=== PATIENT | female | born 1970 | race Caucasian/White ===

== ENCOUNTER 2017-08-25 17:42 | Inpatient (IN) | payer OTHER ==
[~2017-08-25] VITALS: Ht 167.6 cm; Wt 158.8 kg
[~2017-08-25 17:42] MED LIST: ADVIL200 MG PO; ELIQUIS5 MG PO; LEVAQUIN750 MG PO; NORVASC5 MG PO; PROAIR HFA8.5 GM IH
[2017-08-25 21:17] LABS: BASOPHIL (%) 0.2 % (0-1); EOSINOPHIL (%) 0.6 % (0-5); EOSINOPHIL COUNT 0.1 K/uL (0-0.3); HEMATOCRIT 37.9 % (36.0-46.0); HEMOGLOBIN 11.9 G/DL (11.9-15.5); IMMATURE GRANULOCYTE (%) 0.4 % (0.0-0.7); LYMPHOCYTE (%) 13.2 % (15-42); LYMPHOCYTE COUNT 1.1 K/uL (1.0-2.8); MCH 24.2 PG (29.0-34.0); MCHC 31.4 G/DL (30.0-36.0); MCV 77.2 FL (83-99); MONOCYTE (%) 12.7 % (3-12); NEUTROPHIL (%) 72.9 % (45-76); NEUTROPHIL COUNT 5.9 K/uL (1.8-6.4); PLATELET COUNT 188 K/uL (156-360); RBC DIS.WIDTH-CV 14.7 % (11.8-14.6); RBC DIS.WIDTH-SD 40.4 % (39-53); RED BLOOD COUNT 4.91 M/uL (3.80-5.20); WHITE BLOOD COUNT 8.1 K/uL (4.1-10.2)
[2017-08-25 21:31] LABS: CHLORIDE 100 mEq/L (99-109); POTASSIUM 3.7 mEq/L (3.7-5.4); SODIUM 136 mEq/L (136-147)
[2017-08-25 21:32] LABS: GLUCOSE 120 mg/dL (70-99)
[2017-08-25 21:36] LABS: CREATININE 0.8 mg/dL (0.6-1.3); GFR ESTIMATE (CALCULATED) > 59 mL/min/
[2017-08-25 21:37] LABS: UREA NITROGEN (BUN) 10 mg/dL (9-23)
[2017-08-25] MEDS ORDERED: AUGMENTIN875 MG PO (23:37)
[2017-08-25] MEDS ORDERED: TESSALON200 MG PO (23:38)
[2017-08-26] VITALS (7 sets, daily range): BP systolic 124–162; BP diastolic 60–78
[2017-08-27 08:18] VITALS: BP 130/82
[2017-08-27 08:58] LABS: HEMATOCRIT 38.1 % (36.0-46.0); HEMOGLOBIN 11.7 G/DL (11.9-15.5); MCH 23.7 PG (29.0-34.0); MCHC 30.7 G/DL (30.0-36.0); MCV 77.1 FL (83-99); PLATELET COUNT 219 K/uL (156-360); RBC DIS.WIDTH-CV 14.7 % (11.8-14.6); RBC DIS.WIDTH-SD 40.8 % (39-53); RED BLOOD COUNT 4.94 M/uL (3.80-5.20); WHITE BLOOD COUNT 10.8 K/uL (4.1-10.2)
[2017-08-27 10:01] LABS: CHLORIDE 103 MEQ/L (99-109); CREATININE 0.7 MG/DL (0.6-1.3); GFR ESTIMATE (CALCULATED) > 59 mL/min/; GLUCOSE 133 mg/dL (70-99); POTASSIUM 4.2 MEQ/L (3.7-5.4); SODIUM 139 MEQ/L (136-147); UREA NITROGEN (BUN) 17 mg/dL (9-23)
[2017-08-27 11:58] VITALS: BP 142/80
[2017-08-27 15:53] VITALS: BP 138/72
[2017-08-27 19:33] VITALS: BP 176/95
[2017-08-27 21:47] VITALS: BP 160/89
[2017-08-28 00:25] VITALS: BP 153/74
[2017-08-28 04:14] VITALS: BP 174/98
[2017-08-28 07:35] VITALS: BP 150/74
[2017-08-28] MEDS ORDERED: LEVOFLOXACIN500 MG PO (09:50)
[2017-08-28] MEDS ORDERED: OSELTAMIVIR PHO75 MG PO (09:51)
[2017-08-28] MEDS ORDERED: PREDNISONE10 MG PO (09:52)
== END 2017-08-28 12:43 | disposition home or self-care (01) | DRG 202 ==
LOC: EME 17:42 → EDOF 08-26 00:17 → 3EAST 08-26 00:17 → ENRESERV 08-26 00:22 → 3EAST 08-26 01:43
PROVIDERS: Physician Assistant
DX: J20.9 Acute bronchitis, unspecified (principal); J96.01 Acute respiratory failure with hypoxia; J10.1 Influenza due to other identified influenza virus with other respiratory manifestations; E66.01 Morbid (severe) obesity due to excess calories; Z68.43 Body mass index [BMI] 50.0-59.9, adult
CPT/HCPCS: 71046; 71275; 80048; 83605; 85025; 85027; 87040; 87502; 87631; 87651 90; 94640; 94640 76; 94799; 99202; 99281; 99285; J1650; J1956; J2920; J2930; J7030; S0028